=== PATIENT | male | born 1965 | race Caucasian/White ===

== ENCOUNTER → 2016-04-24 | Outpatient (CLI) | payer OTHER ==
[~2016-04-24] MED LIST: ADALAT CC PO; ATENOLOL PO; LISINOPRIL PO; MICRO-K PO
--- NOTE | ~2016-04-24 | US6 ---
[facility] A Service of [facility] & [facility] RADIOLOGY TEXT RESULTS PATIENT: CATHY PITTMAN LOCATION: [facility] : 61 UNIT #: [id number] AGE: [address]: ABDIRAHMAN ALEJANDRA APRN SEX: M ORDER DR: [id number] [facility] [address] [place], [place] [address] [id number] MR#: [id number] Acc #: [id number] NAME: CATHY PITTMAN : 1965 SEX: M STUDY DATE/TIME: 04/24/2016 10:55 UNIT: [facility] ROOM: STUDY DESCRIPTION: US Abdominal Limited Attending Physician: Abdirahman Alejandra Aprn Ordering Physician: Abdirahman Alejandra Aprn Primary Care Physician: Vj Casanova M.D. MEDICAL IMAGING REPORT This report is preliminary unless electronic signature is present EXAM Right upper quadrant ultrasound, 04/24/2016. HISTORY Right upper quadrant abdominal pain radiating to the back for 2 days. Gastroesophageal reflux disease, diabetes, hypertension. FINDINGS The liver demonstrates an increase in echotexture with attenuation of the ultrasound beam, characteristic of fatty infiltration. No cystic or solid mass lesions were seen in the liver. The intra- and extrahepatic bile ducts are not dilated. The gallbladder is normal with no evidence of cholelithiasis, wall thickening, or pericholecystic fluid. The common duct measures 3 mm. The pancreas and right kidney are normal. IMPRESSION Fatty infiltration of the liver. Otherwise, negative right upper quadrant ultrasound. Dictated by... Jeremy Desai M.D. THIS IS AN ELECTRONICALLY VERIFIED REPORT Jeremy Desai M.D. at 04/25/2016 6:06 AM KELSEY/caitlin TD: 04/24/2016 18:01 JOB #: [id number] MEDICAL IMAGING REPORT COPY
== END | disposition home or self-care (01) ==
LOC: CGUS 10:05
DX: R10.9 Unspecified abdominal pain (principal); K76.0 Fatty (change of) liver, not elsewhere classified
CPT/HCPCS: 76705

== ENCOUNTER 2016-09-11 12:57 | Emergency (ER) | payer OTHER ==
[~2016-09-11] VITALS: Ht 177.8 cm; Wt 127.0 kg
--- NOTE | ~2016-09-11 | CR72 ---
[facility] A Service of [facility] & [facility] RADIOLOGY TEXT RESULTS PATIENT: CATHY PITTMAN LOCATION: [facility] : 61 UNIT #: [id number] AGE: [address]: Brandon Jj MD SEX: M ORDER DR: [id number] [facility] [address] [place], [place] [address] [id number] MR#: [id number] Acc #: [id number] NAME: CATHY PITTMAN : 1965 SEX: M STUDY DATE/TIME: 09/11/2016 16:45 UNIT: [facility] ROOM: STUDY DESCRIPTION: CR Chest Single View Portable Attending Physician: Oswald Jj M.D. Ordering Physician: Clemente Arora M.D. Primary Care Physician: Jerad Be M.D. MEDICAL IMAGING REPORT This report is preliminary unless electronic signature is present EXAM AP portable chest 09/11/2016 HISTORY Cough, shortness of breath, chest discomfort for 2 days. COMPARISON PA and lateral chest radiograph 12/22/2014. FINDINGS Ill-defined interstitial or peribronchiolar type infiltrates are suspected within the right lower lobe. No dense lung consolidations are seen. Stable cardiac enlargement. No pleural effusion or pneumothorax. Degenerative endplate spurring in the thoracic spine. IMPRESSION Suspected interstitial or ill-defined peribronchiolar infiltrates within the right lower lobe. Short-term chest radiograph followup to document resolution is recommended. Dictated by... Claudia Mari M.D. THIS IS AN ELECTRONICALLY VERIFIED REPORT Claudia Mari M.D. at 09/13/2016 11:57 AM DARYL/brandon TD: 09/12/2016 08:35 JOB #: [id number] MEDICAL IMAGING REPORT Page 1 of 1 COPY
--- NOTE | ~2016-09-11 | EKG ---
PATIENT: CATHY PITTMAN UNIT #: [id number] Ventricular Rate: 60 BPM Atrial Rate: 60 BPM P-R Interval: 166 ms QRS Duration: 92 ms Q-T Interval: 434 ms QTC Calculation(Bezet): 434 ms P [place]: 28 degrees Calculated R [place]: 55 degrees Calculated T [place]: 52 degrees Diagnosis Line: Normal sinus rhythm with sinus arrhythmia Diagnosis Line: Normal ECG Diagnosis Line: No previous ECGs available Diagnosis Line: Confirmed by SISI MORGAN MD ([id number]) on Diagnosis Line: 09/12/2016 5:07:08 PM INTERPRETING MD: CATHY DAILY
[2016-09-11 14:38] LABS: BASOPHIL# 0.1 X10e3 (0-0.3); BASOPHIL% 0.5 % (0-2.5); EOSINOPHIL# 0.1 X10e3 (0-0.7); EOSINOPHIL% 0.8 % (0.0-7.0); HEMATOCRIT 37.1 % (38.0-50.0); HEMOGLOBIN 12.4 gm/dL (13.0-16.0); LYMPHOCYTE# 1.3 X10e3 (1.0-3.5); LYMPHOCYTE% 9.8 % (17.0-45.0); MEAN CELL VOLUME 84.5 FL (83-96); MEAN CORPUSCULAR HEMOGLOBIN 28.2 PG (28-34); MEAN CORPUSCULAR HGB CONC 33.4 g/dL (30-36); MEAN PLATELET VOLUME 8.7 FL (6.5-11.5); MONOCYTE# 0.9 X10e3 (0-1.0); MONOCYTE% 7.2 % (3.0-12.0); NEUTROPHIL# 10.6 X10e3 (1.5-7.1); NEUTROPHIL% 81.7 % (40-75); PLATELET COUNT 254 X10e3 (140-420); RED BLOOD COUNT 4.38 X10e (3.90-5.60); RED CELL DISTRIBUTION WIDTH 15.7 % (11.0-15.5)
[2016-09-11 14:46] LABS: DIFF IND NO
[2016-09-11 15:10] LABS: BILIRUBIN, DIRECT 0.1 mg/dL (0.0-0.2); BILIRUBIN,INDIRECT 0.7 mg/dL (0.0-0.9); BILIRUBIN,TOTAL 0.8 mg/dL (0.2-2.0); BUN/CREATININE RATIO 12.22; CALCIUM SERUM 8.9 mg/dL (8.4-10.2); CREATININE SERUM 0.9 mg/dL (0.6-1.4); GLOM FILT RATE Estimated 97.2 mL/min (>60); POTASSIUM 3.8 mmol/L (3.5-5.1); PROTEIN TOTAL SERUM 7.4 g/dL (6.0-8.3)
[2016-09-11 17:15] LABS: POC - CKMB 1.3 ng/mL (0.0-7.9); POC - TROPONIN <0.05 ng/mL (<=0.05)
[2016-09-11 17:43] LABS: POC - CKMB <1.0 ng/mL (0.0-7.9); POC - TROPONIN <0.05 ng/mL (<=0.05)
== END 2016-09-11 19:25 | disposition home or self-care (01) ==
LOC: CED 12:57
PROVIDERS: Emergency Medicine
DX: J18.1 Lobar pneumonia, unspecified organism (principal); I48.91 Unspecified atrial fibrillation; I10 Essential (primary) hypertension; E11.9 Type 2 diabetes mellitus without complications; K21.9 Gastro-esophageal reflux disease without esophagitis; R60.0 Localized edema; F17.210 Nicotine dependence, cigarettes, uncomplicated; Z88.0 Allergy status to penicillin
CPT/HCPCS: 36415; 71010; 80048; 80076; 82553; 83880; 84484; 85025; 93005; 94640; 99285